=== PATIENT | female | born 1980 | race Caucasian/White ===

== ENCOUNTER 2017-05-01 20:19 | Emergency (ER) | payer BC ==
[~2017-05-01] VITALS: Ht 170.2 cm; Wt 77.3 kg
[~2017-05-01 20:19] MED LIST: BENTYL 20MG TAB20 MG PO; BUSPAR10 MG PO; LEXAPRO 10MG10 MG PO; MULTIPLE VITAMI1 TA5 PO; NORCO 325 MG-51 TAB PO; PRENATAL1 TA1 PO
[2017-05-01 20:25] VITALS: BP 158/91; TEMP 98.2
[2017-05-01] MEDS ORDERED: ULTRAM 50MG TAB50 MG PO (20:29)
[2017-05-01 21:11] LABS: BASO % 0.4 % (0.0-2.0); EOS # 0.1 (0.0-0.7); EOS % 1.9 % (0-4.0); GRAN # 4.3 (1.4-6.5); GRAN % 59.3 % (42.2-75.2); HEMATOCRIT 37.6 % (37.0-47.0); HEMOGLOBIN 12.6 g/dl (12.5-16.0); LYMPH # 2.1 (1.2-3.4); LYMPH % 29.7 % (20.0-51.0); MEAN CELL VOLUME 86 fl (80.0-100.0); MEAN CORPUSCULAR HEMOGLOBIN 29 pg (27.0-31.0); MEAN CORPUSCULAR HGB CONC 34 g/dl (33.0-37.0); MEAN PLATELET VOLUME 9.2 fl (7.4-10.4); MONO # 0.6 (0.1-0.6); MONO % 8.6 % (1.7-9.3); PLATELET COUNT 251 K/mm3 (130-400); RED BLOOD COUNT 4.35 M/mm3 (4.10-5.30); REDCELL DISTRIBUTION WIDTH-CV 11.8 % (11.5-14.5); WHITE BLOOD COUNT 7.2 K/mm3 (4.8-10.8)
[2017-05-01 21:20] LABS: ALBUMIN 4.1 gm/dL (3.5-5.0); BILIRUBIN,TOTAL 0.3 mg/dL (0.0-1.0); CALCIUM 9.1 mg/dL (8.4-10.2); CREATININE, serum 0.64 mg/dL (0.52-1.25); POTASSIUM 3.6 mmol/L (3.4-5.0); TOTAL PROTEIN 7.4 gm/dL (6.4-8.2)
[2017-05-01 21:25] LABS: PH 5 (5-8); SQUAMOUS EPITHELIAL 0-2 /hpf; URINE APPEARANCE Clear; URINE BACTERIA None Seen /hpf; URINE BILIRUBIN Negative (NEGATIVE); URINE BLOOD Negative (NEGATIVE); URINE COLOR Yellow; URINE GLUCOSE Negative (NEGATIVE); URINE KETONE Negative (NEGATIVE); URINE RBC 0-2 /hpf; URINE UROBILINOGEN Negative (NEGATIVE); URINE WBC 0-2 /hpf
[2017-05-01] MEDS ORDERED: NORCO 325 MG-51 TAB PO (21:32)
[2017-05-01 21:44] VITALS: PULSE 98
== END 2017-05-01 21:45 | disposition home or self-care (01) ==
LOC: COL.ER 20:19
PROVIDERS: Emergency Medicine
DX: R56.9 Unspecified convulsions (principal); T40.4X5A Adverse effect of other synthetic narcotics, initial encounter

== ENCOUNTER 2019-04-27 07:49 | Emergency (ER) | payer BC ==
[~2019-04-27] VITALS: Ht 175.3 cm; Wt 77.3 kg
[~2019-04-27 07:49] MED LIST changes: +ULTRAM 50MG TAB50 MG PO
[2019-04-27 07:55] VITALS: TEMP 99.3
[2019-04-27 08:10] LABS: COLLECTION METHOD CLEAN CATCH
[2019-04-27] MEDS ORDERED: ZOFRAN ODT8 MG PO ×2 (08:10→11:16)
[2019-04-27] MEDS ORDERED: BENTYL 20MG20 MG/TAB PO ×2 (08:11→11:16)
[2019-04-27 08:34] LABS: BASO % 0.4 % (0.0-2.0); EOS % 0.4 % (0-4.0); GRAN # 3.3 (1.4-6.5); GRAN % 63.1 % (42.2-75.2); HEMATOCRIT 40.7 % (37.0-47.0); HEMOGLOBIN 13.6 g/dl (12.5-16.0); LYMPH # 1.5 (1.2-3.4); LYMPH % 29.3 % (20.0-51.0); MEAN CELL VOLUME 90 fl (80.0-100.0); MEAN CORPUSCULAR HEMOGLOBIN 30 pg (27.0-31.0); MEAN CORPUSCULAR HGB CONC 33 g/dl (33.0-37.0); MEAN PLATELET VOLUME 9.2 fl (7.4-10.4); MONO # 0.3 (0.1-0.6); MONO % 6.6 % (1.7-9.3); PLATELET COUNT 316 K/mm3 (130-400); RED BLOOD COUNT 4.53 M/mm3 (4.10-5.30); REDCELL DISTRIBUTION WIDTH-CV 11.8 % (11.5-14.5)
[2019-04-27 08:43] LABS: ALANINE AMINOTRANSFERASE 20 U/L (9-52); ALBUMIN 4.5 gm/dL (3.5-5.0); ALKALINE PHOSPHATASE 79 U/L (50-136); ANION GAP 8 mmol/L (7-16); AST,SGOT 27 U/L (15-37); BILIRUBIN,TOTAL 0.4 mg/dL (0.0-1.0); BLOOD UREA NITROGEN 6 mg/dL (7-17); CALCIUM 9.2 mg/dL (8.4-10.2); CARBON DIOXIDE 27 mmol/L (22-30); CHLORIDE 102 mmol/L (98-107); CREATININE, serum 0.64 (0.52-1.25); GLUCOSE 109 mg/dL (74-106); LIPASE 38 U/L (23-300); POTASSIUM 3.7 mmol/L (3.4-5.0); SODIUM 137 mmol/L (137-145)
[2019-04-27 08:45] LABS: PH 6 (5-8); SQUAMOUS EPITHELIAL None Seen /hpf; URINE APPEARANCE Clear; URINE BACTERIA None Seen /hpf; URINE BILIRUBIN Negative (NEGATIVE); URINE BLOOD 1+ (NEGATIVE); URINE COLOR Colorless; URINE GLUCOSE Negative (NEGATIVE); URINE KETONE Negative (NEGATIVE); URINE LEUKOCYTE ESTERASE Negative (NEGATIVE); URINE NITRATE Negative (NEGATIVE); URINE PROTEIN(semi-quant) Negative (NEGATIVE); URINE RBC 0-2 /hpf; URINE UROBILINOGEN Negative (NEGATIVE)
[2019-04-27 08:46] LABS: C-REACTIVE PROTEIN < 0.5 mg/dL (0.0-0.9)
[2019-04-27] MEDS ORDERED: ADDERALL10 MG PO (09:51)
[2019-04-27] MEDS ORDERED: CATAPRES 0.1MG0.1 MG PO (09:51)
[2019-04-27] MEDS ORDERED: KLONOPIN 1MG1 MG PO (10:54)
[2019-04-27 11:19] VITALS: BP 110/74; PULSE 78
== END 2019-04-27 11:19 | disposition home or self-care (01) ==
LOC: COL.ER 07:49
PROVIDERS: Emergency Medicine
DX: R19.7 Diarrhea, unspecified (principal); R10.84 Generalized abdominal pain; F90.9 Attention-deficit hyperactivity disorder, unspecified type
CPT/HCPCS: J1885; J2060; J2405; J2550; J7030

== ENCOUNTER 2021-04-25 07:37 | Emergency (ER) | payer SELFPAY ==
[~2021-04-25] VITALS: Ht 172.7 cm; Wt 81.8 kg
[~2021-04-25 07:37] MED LIST changes: +ADDERALL10 MG PO; +BENTYL 20MG20 MG/TAB PO; +CATAPRES 0.1MG0.1 MG PO; +KLONOPIN 1MG1 MG PO; +ZOFRAN ODT8 MG PO
[2021-04-25 07:56] VITALS: TEMP 98.7
[2021-04-25 08:12] LABS: BASO % 0.3 % (0.0-2.0); EOS # 0.2 (0.0-0.7); EOS % 1.6 % (0-4.0); GRAN # 8.3 (1.4-6.5); GRAN % 72.2 % (42.2-75.2); HEMATOCRIT 38.9 % (37.0-47.0); HEMOGLOBIN 12.5 g/dl (12.5-16.0); LYMPH # 2.1 (1.2-3.4); LYMPH % 18.2 % (20.0-51.0); MEAN CELL VOLUME 92 fl (80.0-100.0); MEAN CORPUSCULAR HEMOGLOBIN 30 pg (27.0-31.0); MEAN CORPUSCULAR HGB CONC 32 g/dl (33.0-37.0); MEAN PLATELET VOLUME 9.9 fl (7.4-10.4); MONO # 0.8 (0.1-0.6); MONO % 7.3 % (1.7-9.3); PLATELET COUNT 317 K/mm3 (130-400); RED BLOOD COUNT 4.24 M/mm3 (4.10-5.30); REDCELL DISTRIBUTION WIDTH-CV 12.9 % (11.5-14.5)
[2021-04-25 08:21] LABS: ALANINE AMINOTRANSFERASE 23 U/L (4-34); ALKALINE PHOSPHATASE 119 U/L (50-136); ANION GAP 6 mmol/L (7-16); AST,SGOT 35 U/L (15-37); BILIRUBIN,TOTAL 0.2 mg/dL (0.0-1.0); BLOOD UREA NITROGEN 11 mg/dL (7-17); CALCIUM 8.9 mg/dL (8.4-10.2); CARBON DIOXIDE 31 mmol/L (22-30); CHLORIDE 104 mmol/L (98-107); CREATININE, serum 0.73 (0.52-1.25); GLUCOSE 120 mg/dL (74-106); POTASSIUM 3.9 mmol/L (3.4-5.0); SODIUM 141 mmol/L (137-145); TOTAL PROTEIN 7.8 gm/dL (6.4-8.2)
[2021-04-25 08:37] LABS: TROPONIN-I < 0.012 ng/mL (0.000-0.035)
[2021-04-25] MEDS ORDERED: DOXYCYCLINE 10100 MG PO (11:58)
[2021-04-25] MEDS ORDERED: NORCO 325 MG-51 TAB PO (12:02)
[2021-04-25 12:17] VITALS: BP 140/102; PULSE 64
== END 2021-04-25 12:20 | disposition home or self-care (01) ==
LOC: COL.ER 07:37
PROVIDERS: Emergency Medicine
DX: J18.9 Pneumonia, unspecified organism (principal); D72.829 Elevated white blood cell count, unspecified; J90 Pleural effusion, not elsewhere classified; R79.1 Abnormal coagulation profile; R79.89 Other specified abnormal findings of blood chemistry; Z20.822 Contact with and (suspected) exposure to COVID-19
CPT/HCPCS: J2060; J3010; Q9967

== ENCOUNTER 2022-06-19 07:14 | Inpatient (IN) | payer SELFPAY ==
[~2022-06-19] VITALS: Ht 172.7 cm; Wt 93.4 kg
[2022-06-19] VITALS (541 sets, daily range): BP systolic 80–123; BP diastolic 62–68; PULSE 63–76; TEMP 98.8–99.9; O2SAT 72–100
[~2022-06-19 07:14] MED LIST changes: +DOXYCYCLINE 10100 MG PO
[2022-06-19 07:54] LABS: BASO % 0.4 % (0.0-2.0); EOS # 0.2 K/mm3 (0.0-0.7); EOS % 1.5 % (0.0-4.0); GRAN # 7.5 K/mm3 (1.4-6.5); GRAN % 73.9 % (42.2-75.2); HEMATOCRIT 43.4 % (37.0-47.0); HEMOGLOBIN 13.8 g/dl (12.5-16.0); LYMPH # 2.1 K/mm3 (1.2-3.4); LYMPH % 21.2 % (20.0-51.0); MEAN CELL VOLUME 92 fl (80.0-100.0); MEAN CORPUSCULAR HEMOGLOBIN 29 pg (27-31); MEAN CORPUSCULAR HGB CONC 32 g/dl (33.0-37.0); MEAN PLATELET VOLUME 9.2 fl (7.4-10.4); MONO # 0.3 K/mm3 (0.1-0.6); MONO % 2.7 % (1.7-9.3); PLATELET COUNT 373 K/mm3 (130-400); RED BLOOD COUNT 4.73 M/mm3 (4.10-5.30); REDCELL DISTRIBUTION WIDTH-CV 12.4 % (11.5-14.5)
[2022-06-19 08:05] LABS: ALBUMIN 3.4 gm/dL (3.5-5.0); ANION GAP 7 mmol/L (7-16); BLOOD UREA NITROGEN 19 mg/dL (7-19); C-REACTIVE PROTEIN 1.42 mg/dL (0.00-0.50); CALCIUM 9.2 mg/dL (8.4-10.2); CARBON DIOXIDE 27 mmol/L (22-29); CHLORIDE 106 mmol/L (98-107); CREATININE, serum 0.94 mg/dL (0.57-1.11); GLUCOSE 101 mg/dL (70-99); PHOSPHOROUS 5.2 mg/dL (2.3-4.7); SODIUM 140 mmol/L (136-145)
[2022-06-19 08:13] LABS: TROPONIN-I < 0.010 ng/mL (0.00-0.033)
[2022-06-19 08:29] LABS: ARTERIAL BLD GAS O2 SATURATION 90.4 % (92-100); ARTERIAL BLD GAS TCO2 CT 26.7; ARTERIAL BLOOD GAS BASE EXCESS -2.3 (-2-2); ARTERIAL BLOOD GAS HCO3 25.1 meq/L (22-26); ARTERIAL BLOOD GAS PCO2 53.5 mmHg (35-45); ARTERIAL BLOOD GAS PO2 61.1 mmHg (80-100); ARTERIAL BLOOD GAS pH 7.29 (7.35-7.45)
--- NOTE | 2022-06-19 11:30 | NUR ---
Arrived to the unit from ED. Patient currenlty on BIPAP. Alert and oriented and does not appear to be in any distress. Reports breathing feels "better" with BIPAP machine on. Denies any complaints or complaints except feeling "thirsty". AIVS team in room to initiate PICC placement at this time.
[2022-06-19 12:51] LABS: ARTERIAL BLD GAS O2 SATURATION 93.8 % (92-100); ARTERIAL BLD GAS TCO2 CT 28.6; ARTERIAL BLOOD GAS BASE EXCESS -0.4 (-2-2); ARTERIAL BLOOD GAS HCO3 26.8 meq/L (22-26); ARTERIAL BLOOD GAS PCO2 55.8 mmHg (35-45); ARTERIAL BLOOD GAS PO2 72.8 mmHg (80-100)
[2022-06-19 13:13] LABS: TRICYCLIC ANTIDEPRESS URINE NEGATIVE
--- NOTE | 2022-06-19 13:15 | NUR ---
Initially upon arrival patient slightly drowsy but alert and oriented and responding to staff. Patient is now not responsive to staff. Sternal rub performed vigorously with no response. VS stable and ABB obtained with improvement in numbers. Hospitalist notified and will come to see patient.
--- NOTE | 2022-06-19 13:45 | NUR ---
After discussing patient symptoms with Dr. Srivastava with plan to intubate due to unresponsiveness. Anesthesisa contacted and arrived in room. Intubated supplies were gathered and patient was placed in position. Anesthesia was just preparing to administer meds when patient suddenly woke up and was fully alert and oriented. Stated that she did not remember what had happened within approximately one hour. Will hold off on intubation at this time due to change in mentation. Dr. Srivastava notified and will come see patient.
[2022-06-19] MEDS ORDERED: MELATONIN5 M1 PO (14:17)
--- NOTE | 2022-06-19 14:47 | NUR ---
Patient reported taking a total of 160 mg of melatonin overnight. States that it was not taken all at once. Reports that she only took it with the intention of falling asleep. Discussed with Dr. Srivastava and received order to contact poison control. Discussed patient history with Poison control and they do not feel any of her current symptoms are related to melatonin as it has a half life of 90 min. Her only recommendations were to possibly obtain an expanded UDS and consider consulting psych.
--- NOTE | 2022-06-19 16:46 | NUR ---
Alert and oriented and responsive to staff. No neurological deficits noted at this time.
[2022-06-19 18:04] LABS: ARTERIAL BLD GAS O2 SATURATION 98.6 % (92-100); ARTERIAL BLOOD GAS HCO3 27.4 meq/L (22-26); ARTERIAL BLOOD GAS PCO2 51.1 mmHg (35-45); ARTERIAL BLOOD GAS PO2 119.5 mmHg (80-100); ARTERIAL BLOOD GAS pH 7.35 (7.35-7.45)
[2022-06-20] VITALS (1207 sets, daily range): BP systolic 86–164; BP diastolic 66–94; PULSE 80–87; TEMP 98–99; O2SAT 68–100
[2022-06-20 04:52] LABS: ARTERIAL BLD GAS TCO2 CT 30.2; ARTERIAL BLOOD GAS BASE EXCESS 2.8 (-2-2); ARTERIAL BLOOD GAS HCO3 28.7 meq/L (22-26); ARTERIAL BLOOD GAS PCO2 48.7 mmHg (35-45); ARTERIAL BLOOD GAS PO2 62.1 mmHg (80-100); ARTERIAL BLOOD GAS pH 7.39 (7.35-7.45)
[2022-06-20 05:51] LABS: MEAN CELL VOLUME 94 fl (80.0-100.0); MEAN CORPUSCULAR HGB CONC 32 g/dl (33.0-37.0); MEAN PLATELET VOLUME 9.4 fl (7.4-10.4); RED BLOOD COUNT 3.71 M/mm3 (4.10-5.30); REDCELL DISTRIBUTION WIDTH-CV 12.7 % (11.5-14.5)
[2022-06-20 05:58] LABS: HEMATOCRIT 34.7 % (37.0-47.0); MEAN CORPUSCULAR HEMOGLOBIN 30 pg (27-31)
[2022-06-20 05:59] LABS: PLATELET COUNT 270 K/mm3 (130-400)
[2022-06-20 06:07] LABS: ALBUMIN 2.7 gm/dL (3.5-5.0); CALCIUM 8.9 mg/dL (8.4-10.2); CREATININE, serum 0.65 mg/dL (0.57-1.11); MAGNESIUM 1.5 mg/dL (1.6-2.6); PHOSPHOROUS 2.7 mg/dL (2.3-4.7); POTASSIUM 3.7 mmol/L (3.5-4.5)
[2022-06-20 06:21] LABS: BAND 5 % (0-10); LYMPHOCYTE 3 % (20.0-51.0); NEUTROPHILS 92 % (42.0-75.2); PLATELET ESTIMATE NORMAL (NORMAL)
--- NOTE | 2022-06-20 12:44 | NUR ---
stopped by but nothing needed at this time.
--- NOTE | 2022-06-20 13:15 | NUR ---
REDDY SÁNCHEZCOPY PREPARER BEDSIDE.
--- NOTE | 2022-06-20 14:36 | NUR ---
SW met with patient to complete intake. Patient states that she lives in [facility], next of kin is her daughter [phone]. Patient does not utilize DME, is independent with ADL's, and does not utilize HH services. Patient states that she does not have a PCP and did not wish to have resources to obtain one. Pharmacy is [facility]. Patient provides that she would like to file a complaint about her information about being admitted to the hospital was provided to someone she did not wish to know by a staff member to another individual she did not wish to have the information. SW informed the House Nurse of the information and House Nurse provided that she would be going down to speak to the patient. Patient plans to return to her [place]. MIK will continue to follow. DC plan: home
--- NOTE | 2022-06-20 19:46 | NUR ---
GOT BEDSIDE REPORT FROM NOHEMI. PT WAS INVOLVED WITH THE BEDSIDE REPORT. AFTER REPORT WAS GIVEN PT WAS SITTING ON EDGE OF BED EATTING SUPPER AND WATCHING TV WITH CALL LIGHT WITHIN REACH.
--- NOTE | 2022-06-20 21:45 | NUR ---
2052: PT'S BP WAS TAKEN. STATED BP WAS 146/90. PT MENTIONED TAKING A HOME BP MEDICATION AROUND 30 MINUTUES PRIOR. PT SHOWED THE PILL. PILLS WERE NOT IN A PERSCRIPTION BOTTLE, THEY WERE IN A SMALL BLUE SWENSON CHAIN CONTAINER THAT THE TOP SCREWS OFF. THE PILL IS YELLOW. PT STATES IT'S 0.1 MG CLONIDINE PILL THAT SHE TAKES FOR HER HIGH BP AND COULD BE USED FOR ANIXEITY WELL. LOOKS LIKE THERE WERE ABOUT THREE MORE PILLS IN THE CONTAINER. CHARGE NURSE AND HOUSE WAS NOTIFIED. 2135 HOSPITALIST WAS NOTIFED. WILL CONTINUE TO WATCH BP THROUGHOUT THE SHIFT.
[2022-06-20] MEDS ORDERED: CATAPRES 0.1MG0.1 MG PO (23:07)
[2022-06-21] VITALS (466 sets, daily range): BP systolic 104–125; BP diastolic 68–85; PULSE 63–71; TEMP 98.5–99; O2SAT 74–100
[2022-06-21 04:38] LABS: HEMOGLOBIN 10.5 g/dl (12.5-16.0); MEAN CELL VOLUME 93 fl (80.0-100.0); MEAN CORPUSCULAR HEMOGLOBIN 30 pg (27-31); MEAN CORPUSCULAR HGB CONC 32 g/dl (33.0-37.0); MEAN PLATELET VOLUME 9.5 fl (7.4-10.4); PLATELET COUNT 280 K/mm3 (130-400); RED BLOOD COUNT 3.54 M/mm3 (4.10-5.30); REDCELL DISTRIBUTION WIDTH-CV 12.8 % (11.5-14.5)
[2022-06-21 05:05] LABS: ALBUMIN 2.7 gm/dL (3.5-5.0); CREATININE, serum 0.67 mg/dL (0.57-1.11); MAGNESIUM 2.1 mg/dL (1.6-2.6); PHOSPHOROUS 3.1 mg/dL (2.3-4.7); POTASSIUM 4.3 mmol/L (3.5-4.5)
[2022-06-21 05:57] LABS: BAND 6 % (0-10); LYMPHOCYTE 2 % (20.0-51.0); NEUTROPHILS 91 % (42.0-75.2); PLATELET ESTIMATE NORMAL (NORMAL)
--- NOTE | 2022-06-21 06:24 | NUR ---
PT TOOK BP HOME MED. AROUND 2029. WATCHED BP THROUGHOUT THE NIGHT. THE BP DID DROP BUT STAYED WITHIN A LIMITS. PT HAS BEEN SLEEPING MOST OF THE NIGHT. WHEN PT WENT INTO DEEP SLEEP HER SPO2 DROPPED AROUND 85%. PUT 2L NC ON FOR SLEEP AND SPO2 STAYED AROUND 92%. PT NOW IS ON ROOM AIR. WILL GIVE REPORT TO DAY SHIFT NURSE.
--- NOTE | 2022-06-21 08:06 | NUR ---
BEDSIDE SHIFT REPORT RECEIVED FROM ROBERT GRIGGS. PT CURRENTLY RESTING IN BED. NO C/O PAIN OR DISCOMFORT AT THIS TIME. ABX RUNNING ACCORDING TO REPORT (SEE DRIP FLOW SHEET). VSS. NO ACUTE CHANGES NOTED AT THIS TIME
[2022-06-21] MEDS ORDERED: CLEOCIN HCL300 MG PO (10:49)
[2022-06-21] MEDS ORDERED: DOXYCYCLINE HY100 MG PO ×4 (10:50→10:56)
--- NOTE | 2022-06-21 15:15 | NUR ---
PICC LINE REMOVED BEFORE DISCHARGE AT 1100. UPPER ARM CIRCUMFERENCE 31CM. LENGTH OF CATHETER TO END OF HUB 47 CM. CATHETER INTACT AT REMOVAL.
== END 2022-06-21 11:20 | disposition home or self-care (01) | DRG 917 ==
LOC: COL.ER 07:14 → ICU 09:02
PROVIDERS: Emergency Medicine; Internal Medicine Pulmonary Disease; ADMIT Internal Medicine
PROC: 5A0935A Assistance with Respiratory Ventilation, Less than 24 Consecutive Hours, High Flow/Velocity Cannula (ICD-10-PCS; principal; 2022-06-19)
PROC: 5A09357 Assistance with Respiratory Ventilation, Less than 24 Consecutive Hours, Continuous Positive Airway Pressure (ICD-10-PCS; 2022-06-19)
PROC: 02HV33Z Insertion of Infusion Device into Superior Vena Cava, Percutaneous Approach (ICD-10-PCS; 2022-06-19)
DX: T65.891A Toxic effect of other specified substances, accidental (unintentional), initial encounter (principal); J69.0 Pneumonitis due to inhalation of food and vomit; J96.01 Acute respiratory failure with hypoxia; J96.02 Acute respiratory failure with hypercapnia; F41.9 Anxiety disorder, unspecified; I95.9 Hypotension, unspecified; I44.0 Atrioventricular block, first degree; E83.42 Hypomagnesemia; Z79.899 Other long term (current) drug therapy
CPT/HCPCS: A4314; C1751; J0456; J2543; J2920; J3010; J3475; J3480; J7050; J7120; Q9967